=== PATIENT | female | born 1985 | race Caucasian/White ===

== ENCOUNTER 2017-01-25 09:42 | Emergency (ER) | payer OTHER ==
[2017-01-25 11:16] VITALS: BP 113/63
--- NOTE | 2017-01-25 11:54 | UC ---
Complaint Female HPI - HPI Summary HPI Summary: 18 week pt presents w/ polyuria and lower pelvic/hip discomfort since yesterday. [place] her fetus drop from higher position to a lower pelvic position last night and sx started shortly thereafter. Was sent today by OBGYN to asses for UTI. Pt reports she's only had 1 in her lifetime after an 8 hour car trip with infrequent bathroom breaks. Today, she denies fever, chills, N/V, flank pain, chest pain, SOB. She has had some diarrhea. Denies vaginal pain, itching, irritation, bleeding, spotting and no ab pain/contractions. Eating and drinking well. - History Of Current Complaint Chief Complaint: UCGU Stated Complaint: URINARY ISSUE 18 WEEKS PREG Time Seen by Provider: 01/25/17 11:35 Hx Obtained From: Patient Hx Last Menstrual Period: AUG 2016 - Allergies/Home Medications Allergies/Adverse Reactions: Allergies Allergy/AdvReac Type Severity Reaction Status Date / Time No Known Allergies Allergy Verified 01/25/17 11:07 Home Medications: Home Medications Docosahexaenoic Acid [ Dha] 1 tab PO DAILY 01/25/17 [History Confirmed 01/25/17] PMH/Surg Hx/FS Hx/Imm Hx Previously Healthy: Yes Endocrine History Of: Denies: Diabetes, Thyroid Disease Cardiovascular History Of: Denies: Cardiac Disorders, Hypertension, Pacemaker/ICD Respiratory History Of: Denies: COPD, Asthma GI/ History Of: Denies: Ulcer, Renal Disease - Surgical History Surgical History: Yes Surgery Procedure, Year, and Place: RT THYROID REMOVAL AGE 16: 2002 - Family History Known Family History: Positive: None - Social History Occupation: Employed Part-time - eligibility worker Lives: With Family Alcohol Use: None Substance Use Type: None Smoking Status (MU): Never Smoked Tobacco Review of Systems Constitutional: Negative Skin: Negative Respiratory: Negative Cardiovascular: Negative Gastrointestinal: Other - see HPI Genitourinary: Other - see HPI Motor: Negative Musculoskeletal: Other: - see HPI NOTE: h/o back issues Neurological: Negative Psychological: Negative All Other Systems Reviewed And Are Negative: Yes Physical Exam Triage Information Reviewed: Yes Appearance: Well-Appearing, No Pain Distress, Well-Nourished Vital Signs: Initial Vital Signs Temp 98.6 F 01/25/17 11:09 Pulse 101 01/25/17 11:09 Resp 16 01/25/17 11:09 BP 113/63 01/25/17 11:09 Pulse Ox 97 01/25/17 11:09 Vital Signs Reviewed: Yes Eye Exam: Normal ENT Exam: Normal Neck exam: Normal Respiratory Exam: Normal Cardiovascular Exam: Normal Abdominal Exam: Normal Abdomen Description: Positive: Nontender, Soft - lowest palpable pelvic region firm. Negative: CVA Tenderness (R), CVA Tenderness (L) Bowel Sounds: Positive: Present Musculoskeletal Exam: Normal Musculoskeletal: Positive: Strength Intact Neurological Exam: Normal Psychological Exam: Normal Skin Exam: Normal Diagnostics - Laboratory Diagnostic Studies Completed/Ordered: HR 152 Complaint Female Dx - Course Course Of Treatment: Pt does not appear to have a UTI however urine will go for cx and sens. If anbx are necessary, will call and sent anbx to pharm. Suspect sx were triggered by movement of fetus. Pt will monitor for danger s/sx and go to ED if they present. Otherwise, will f/u w/ PCP. She denies polydipsia and no known h/o DM - no glucsuria on U/A today. Will have her f/u w/ PCP to see if gestational diabetes testing is necessary however low liklihood given sx and results today. viable w/ FHR 152 - Differential Dx/Diagnosis Provider Diagnoses: polyuria in Discharge - Discharge Plan Condition: Stable Disposition: HOME Patient Education Materials: Polyuria (ED), (ED) Referrals: Olga Lidia Enriquez NP [Primary Care Provider] - Additional Instructions: Your urinalysis does not appear to present with UTI today. A culture will be sent and this will be further investigated over the next 2 days., If you do have an infection, an antibiotic will be called in to your pharmacy. Follow-up with OBGYN if symptoms persist although increased urge to urinate is common in due to the fetus pressing against the bladder. *If you develop fever, chills, vaginal bleeding, contractions, chest pain, shortness of breath, go to ED
== END 2017-01-25 11:58 | disposition home or self-care (01) ==
LOC: UCEAST 09:42
DX: O26.892 Other specified pregnancy related conditions, second trimester (principal); Z3A.18 18 weeks gestation of pregnancy; R35.8 Other polyuria
CPT/HCPCS: 81003; 87086; 99211; G0463

== ENCOUNTER 2017-06-21 14:34 | Inpatient (IN) | payer MEDICAID, OTHER ==
[2017-06-21] MEDS ORDERED: Acetaminophen TAB* 325 MG PO PRN (18:25)
[2017-06-21] MEDS ORDERED: Dibucaine 1% 28.35 GM TUBE PR PRN (18:25)
[2017-06-21] MEDS ORDERED: Witch Hazel PAD* JAR TOPICAL PRN (18:25)
[2017-06-21] MEDS: Ibuprofen TAB* 600 MG PO PRN (20:29)
[2017-06-21] MEDS: Docusate CAP* 100 MG PO SCH (20:29)
[2017-06-22] MEDS: Ibuprofen TAB* 600 MG PO PRN ×4 (04:09→22:08)
[2017-06-22 06:32] LABS: Hematocrit 34 % (35-47); Hemoglobin 12.1 g/dl (12.0-16.0); Mean Corpuscular HGB Conc 35 g/dl (31-36); Mean Corpuscular Hemoglobin 35 pg (27-31); Mean Corpuscular Volume 98 fL (80-97); Mean Platelet Volume 7 um3 (7.4-10.4); Red Cell Distribution Width 14 % (10.5-15)
[2017-06-22] MEDS: Docusate CAP* 100 MG PO SCH ×3 (08:48→19:29)
[2017-06-22] MEDS ORDERED: Ferrous Gluconate TAB* 324 MG TAB PO SCH (09:00)
[2017-06-23] MEDS: Ibuprofen TAB* 600 MG PO PRN ×2 (03:45→09:55)
--- NOTE | 2017-06-23 07:03 | PTEDU ---
Patient Name: JAMES STANLEY JAMES STANLEY selected video: Follow Me Mum: [employer] to view on 06/23/20 17 at 7:02:03 AM from [id number]
[2017-06-23 08:10] VITALS: BP 128/81
[2017-06-23] MEDS: Docusate CAP* 100 MG PO SCH (09:35)
== END 2017-06-23 12:43 | disposition home or self-care (01) | DRG 560 ==
LOC: MCHOBOUT 14:34 → MCHOB 15:01
PROVIDERS: ADMIT Midwife; ATTEND Midwife
PROC: 10E0XZZ Delivery of Products of Conception, External Approach (ICD-10-PCS; principal; 2017-06-21)
PROC: 10907ZC Drainage of Amniotic Fluid, Therapeutic from Products of Conception, Via Natural or Artificial Opening (ICD-10-PCS; 2017-06-21)
PROC: 0KQM0ZZ Repair Perineum Muscle, Open Approach (ICD-10-PCS; 2017-06-21)
DX: O34.13 Maternal care for benign tumor of corpus uteri, third trimester (principal); D25.9 Leiomyoma of uterus, unspecified; O70.1 Second degree perineal laceration during delivery; Z3A.39 39 weeks gestation of pregnancy; Z37.0 Single live birth
CPT/HCPCS: 36415; 85025; A9270-GY